=== PATIENT | female | born 1965 | race Caucasian/White ===

== ENCOUNTER 2018-04-24 09:59 | Outpatient (CLI) | payer BC ==
--- NOTE | 2018-04-24 11:01 | RAD ---
PA AND LATERAL CHEST: History: COPD. Comparison: 01-20-17 FINDINGS: Heart size and mediastinum are within normal limits. Chronic appearing lung changes are seen. No acut e process is demonstrated. IMPRESSION: Mild chronic lung change. Stable exam. POS: [facility]
== END 2018-04-24 10:00 | disposition home or self-care (01) ==
LOC: BICRAD 09:59
PROVIDERS: ATTEND Specialist
DX: J44.1 Chronic obstructive pulmonary disease with (acute) exacerbation (principal)
CPT/HCPCS: 71046

== ENCOUNTER 2018-04-27 10:52 | Observation (INO) | payer BC ==
--- NOTE | 2018-04-27 12:04 | RAD ---
PA AND LATERAL CHEST: History: Pneumonia. FINDINGS: Comparison is made with exam of 05-04-18. The heart is enlarged. No focal areas of consolidation, pneumothoraces, melva pulmonary edema or pleu ral effusions are seen. Chronic changes are again noted. IMPRESSION: No acute process. POS: C
[2018-04-27 12:45] VITALS: BMI 29.6
[2018-04-27 13:12] LABS: #Basophils 0.1 thou/uL (0.0-0.2); #Eosinphils 0.2 thou/uL (0.0-0.7); #Lymphocytes 2.7 thou/uL (1.20-3.40); #Monocytes 0.7 thou/uL (0.11-0.59); #Neutrophils 7.1 thou/uL (1.40-6.50); %Basophils 0.7 % (0.0-1.0); %Eosinophils 2.2 % (0.0-10.0); %Lymphocytes 24.7 % (21.0-51.0); %Monocytes 6.4 % (0.0-10.0); %Neutrophils 65.9 % (42.0-75.0); Hemoglobin 13.1 g/dL (12.0-16.0); Mean Corpuscular HGB CONC 32.3 g/dL (32.0-36.0); Mean Corpuscular Hemoglobin 32.6 pg (27.0-31.0); Mean Platelet Volume 6.8 fL (7.4-10.4); Platelet Count 333 thou/uL (130-400); RBC Distribution Width 13.3 % (11.5-14.5); Red Blood Cell (RBC) Count 4.03 mill/uL (4.20-5.40); White Blood Cell (WBC) Count 10.7 thou/uL (4.8-10.8)
[2018-04-27 13:45] LABS: ALT (SGPT) 14 U/L (8-55); AST (SGOT) 24 U/L (5-34); Albumin 3.4 g/dL (3.5-5.0); Alkaline Phosphatase 104 U/L (40-150); Anion Gap 15 mmol/L (10-20); BUN (Urea Nitrogen) 9 mg/dL (9.8-20.1); Bilirubin, Total 0.3 mg/dL (0.2-1.2); Calc. Creatinine Clearance 111 mL/min (70-130); Calcium 9.4 mg/dL (7.8-10.44); Carbon Dioxide 26 mmol/L (22-29); Chloride 98 mmol/L (98-107); Estimated GFR-MDRD 75; Globulin 3.3 g/dL (2.4-3.5); Glucose 127 mg/dL (70-105); Potassium 3.2 mmol/L (3.5-5.1); Protein, Total 6.7 g/dL (6.0-8.3); Sodium 136 mmol/L (136-145)
[2018-04-27] MEDS ORDERED: Sodium Chloride 0.9% 1,000 ML IV SCH (15:45)
[2018-04-27] MEDS ORDERED: Acetaminophen 325 MG TAB PO PRN (16:00)
[2018-04-27 16:48] LABS: Bilirubin Small (Negative); Blood, Urine Negative (Negative); Clarity CLEAR (Clear); Glucose, Urine (Dipstick) Negative (Negative); Leukocyte Negative (Negative); Nitrite Negative (Negative); Protein, Urine (Dipstick) Trace mg/dL (Neg-Trace); Specific Gravity, Urine 1.023 (1.002-1.036)
[2018-04-27] MEDS: Budesonide 0.5 MG/2 ML NEB NEB SCH (16:50)
[2018-04-27 17:01] LABS: Amphetamine Not Detected (NotDetected); Barbiturates Screen Not Detected (NotDetected); Benzodiazepine Screen Detected (NotDetected); Cocaine Metabolite Screen Not Detected (NotDetected); Medtox Control Line Valid? VALID (VALID); Medtox Reader # READER 4; Methadone Not Detected (NotDetected); Methamphetamine Not Detected (NotDetected); Opiate Screen Detected (NotDetected); Oxycodone Screen Detected (NotDetected); Phencyclidine (PCP) Not Detected (NotDetected); THC/Cannabinoid Screen Not Detected (NotDetected); Tricyclic Screen Detected (NotDetected)
[2018-04-27] MEDS: cefTRIAXone\\ROCEPHIN 1 GM in Sodium Chloride 0.9% 100 ML IVPB SCH (18:23)
[2018-04-27] MEDS ORDERED: GABAPENTIN PO SCH (21:00)
[2018-04-27] MEDS ORDERED: Gabapentin 300 MG CAP PO SCH (21:00)
[2018-04-27] MEDS ORDERED: [UNRECOGNIZED DRUG - OTHER] PO SCH (21:00)
[2018-04-27] MEDS: Clarithromycin 500 MG TAB PO SCH (21:19)
[2018-04-27] MEDS: HYDROcodone/Chlorphen Polis 5 ML UDCUP PO SCH (21:20)
[2018-04-27] MEDS: guaiFENesin ER 600 MG TAB PO SCH (21:20)
[2018-04-27] MEDS: DULoxetine 60 MG CAP PO SCH (21:20)
[2018-04-27] MEDS: ALPRAZolam 1 MG TAB PO SCH (21:20)
[2018-04-27] MEDS: rOPINIRole HCl 1 MG TAB PO SCH (21:20)
[2018-04-27] MEDS: methylPREDNISolone Sod Succ/PF 125 MG/2 ML VIAL IVP SCH (23:53)
[2018-04-28] MEDS: HYDROcodone/Acetaminophen 10/325 mg Tablet PO PRN ×2 (05:20→18:00)
[2018-04-28] MEDS: methylPREDNISolone Sod Succ/PF 125 MG/2 ML VIAL IVP SCH ×4 (05:22→23:26)
[2018-04-28 05:35] LABS: #Lymphocytes 0.7 thou/uL (1.20-3.40); #Monocytes 0.1 thou/uL (0.11-0.59); %Basophils 0.3 % (0.0-1.0); %Eosinophils 0.2 % (0.0-10.0); %Monocytes 0.8 % (0.0-10.0); %Neutrophils 92.7 % (42.0-75.0); Hemoglobin 13.2 g/dL (12.0-16.0); Mean Corpuscular HGB CONC 32.6 g/dL (32.0-36.0); Mean Corpuscular Hemoglobin 32.8 pg (27.0-31.0); Mean Platelet Volume 6.8 fL (7.4-10.4); Platelet Count 322 thou/uL (130-400); RBC Distribution Width 13.4 % (11.5-14.5); Red Blood Cell (RBC) Count 4.01 mill/uL (4.20-5.40); White Blood Cell (WBC) Count 10.8 thou/uL (4.8-10.8)
[2018-04-28] MEDS: Budesonide 0.5 MG/2 ML NEB NEB SCH ×2 (05:44→19:47)
[2018-04-28 05:55] LABS: Anion Gap 12 mmol/L (10-20); BUN (Urea Nitrogen) 8 mg/dL (9.8-20.1); Calc. Creatinine Clearance 127 mL/min (70-130); Calcium 9.2 mg/dL (7.8-10.44); Carbon Dioxide 29 mmol/L (22-29); Chloride 102 mmol/L (98-107); Estimated GFR-MDRD 88; Glucose 162 mg/dL (70-105); Potassium 3.1 mmol/L (3.5-5.1); Sodium 140 mmol/L (136-145)
[2018-04-28] MEDS ORDERED: Potassium Chloride 20 MEQ TAB PO SCH (08:30)
--- NOTE | 2018-04-28 09:14 | HP ---
CHIEF COMPLAINT: Protracted upper respiratory illness and bronchopneumonia. HISTORY OF PRESENT ILLNESS: The patient is a 52-year-old female who first came to see Dr. Underwood about this upper respiratory illness on April 20, 2018. At that time, she had already been short of breath with wheezing for 7 days. She was having a cough productive of green sputum and low-grade fever. At that examination, there were scattered wheezes and occasional rales in the right lower lobe. It was felt that she had COPD and possible early right lower lobe pneumonia. She was placed on Levaquin 500 mg, promethazine cough syrup and told to follow with Dr. Underwood if she did not improve. She returned to his office on 04/24/2018 complaining that the medications were not working well, she is still having problems with persistent cough and shortness of breath. On that examination again, her chest revealed rhonchi with decreased breath sounds throughout. Her antibiotics were switched to Biaxin and she then followed up on the day of admission, 04/27/2018 again stating that she was unable to rest. She was coughing all night. Her fever got up to 100.8 and she felt much worse. At this point, it was obvious she was failing outpatient treatment and it was elected to put her in for further evaluation. Her examination had diffuse rhonchi with dyspnea and her examination revealed shortness of breath, dyspnea, and on her chest exam, distant breath sounds in all quadrants with rhonchi. PAST MEDICAL HISTORY: Significant for multiple medical problems including generalized anxiety disorder, chronic insomnia, restless legs syndrome, chronic back pain, COPD, hypertension and vitamin D deficiency. PAST SURGICAL HISTORY: Includes EGD where she was diagnosed with Hurt's esophagus and esophagitis. PAST PSYCHIATRIC HISTORY: Significant for depression, anxiety and chronic pain. ALLERGIES: ALLERGIES ARE TO ERYTHROMYCIN, MORPHINE, TRIPTANS. MEDICATIONS ON ADMISSION: Include: 1. Alprazolam 1 p.o. nightly. 2. Amlodipine 5 mg daily. 3. Dexilant 60 mg daily. 4. Duloxetine 60 mg daily. 5. Vitamin D 42938 units every week. 6. Hydrochlorothiazide 25 mg q.a.m. 7. [place] mg p.r.n. pain. 8. Lisinopril 10 mg daily. 9. Seroquel 100 mg nightly. 10. Ropinirole 1 mg nightly. REVIEW OF SYSTEMS: GENERAL: Significant for generalized malaise and fever and cough. HEENT: Negative for sores on ears, nose, and throat or drainage. CHEST: Significant for dyspnea and cough. HEART: Denies chest pain or palpitations. GI: Denies nausea, vomiting, or diarrhea. : Denies dysuria or blood in urine or stool. MUSCULOSKELETAL: Has significant chronic back pain. No new muscular aches or pains. SKIN: Without any rashes or lesions. NEUROLOGICAL: No new areas of anesthesia, paresthesia, or headaches. PHYSICAL EXAMINATION: VITAL SIGNS: At the time of admission, blood pressure is 100/80, pulse is 100 beats per minute, temperature 99.6, and weight 187 pounds. She is 67 inches tall. BMI of 29. HEENT: Normocephalic, atraumatic. Pupils are equal, round, and reactive to light. Extraocular muscles are intact. TMs clear. Nares clear. Pharynx without erythema or lesion. NECK: Supple. Trachea midline. No mass. No bruits. CHEST: With diminished breath sounds in all carver with rhonchi and faint rales diffusely. HEART: Regular rate and rhythm without murmur. BREASTS: Deferred. ABDOMEN: Soft, nontender without hepatosplenomegaly. : Deferred. EXTREMITIES: Without clubbing, cyanosis, or edema. SKIN: Without rashes or lesions. NEUROLOGICAL: Cranial nerves are intact. Mental status clear. Gait and cerebral functions intact. Sensory exam is intact. SKIN: No new rashes or lesions. LABORATORY DATA: Lab work thus far shows WBC 10.7, hemoglobin 13.1, hematocrit 40.7 and platelets 333. Sodium 136, potassium 3.2, chloride 98, CO2 26, BUN 9, creatinine 0.8 with a GFR 75, glucose 127. UA; small bilirubin. Urinary drug screen, positive for opiates and oxycodone, positive for tricyclics and positive for benzodiazepine. Sputum shows many wbc's with moderate gram-positive cocci in pairs, moderate yeast. Flu exam shows negative for flu A and flu B. Chest x-ray shows an enlarged heart with no acute infiltrates. ASSESSMENT: 1. Bronchial pneumonia. 2. Cardiomegaly. 3. Chronic obstructive pulmonary disease. 4. Hypokalemia. PLAN: To continue neb treatments and antibiotics. We will add steroids and get an echocardiogram for the heart and serially re-evaluate her. Job ID: [id number]
[2018-04-28] MEDS: guaiFENesin ER 600 MG TAB PO SCH ×2 (09:15→21:21)
[2018-04-28] MEDS: Clarithromycin 500 MG TAB PO SCH ×2 (09:15→21:20)
[2018-04-28] MEDS: DULoxetine 60 MG CAP PO SCH ×2 (09:15→21:21)
[2018-04-28] MEDS: Potassium Chloride 20 MEQ TAB PO SCH ×2 (09:16→21:21)
[2018-04-28] MEDS: Amlodipine 5 MG TAB PO SCH (11:58)
[2018-04-28] MEDS: HYDROcodone/Chlorphen Polis 5 ML UDCUP PO SCH ×2 (11:59→21:30)
[2018-04-28] MEDS: Hydrochlorothiazide 25 MG TAB PO SCH (11:59)
[2018-04-28] MEDS ORDERED: cefTRIAXone\\ROCEPHIN 1 GM in Sodium Chloride 0.9% 100 ML IVPB SCH (16:00)
[2018-04-28] MEDS: cefTRIAXone\\ROCEPHIN 1 GM in Sodium Chloride 0.9% 100 ML IVPB SCH (18:01)
[2018-04-28] MEDS: rOPINIRole HCl 1 MG TAB PO SCH (21:20)
[2018-04-28] MEDS: ALPRAZolam 1 MG TAB PO SCH (21:24)
[2018-04-29] MEDS: methylPREDNISolone Sod Succ/PF 125 MG/2 ML VIAL IVP SCH (05:17)
[2018-04-29] MEDS: Budesonide 0.5 MG/2 ML NEB NEB SCH (06:03)
[2018-04-29 06:13] LABS: Anion Gap 12 mmol/L (10-20); BUN (Urea Nitrogen) 9 mg/dL (9.8-20.1); Calc. Creatinine Clearance 132 mL/min (70-130); Calcium 9.3 mg/dL (7.8-10.44); Carbon Dioxide 27 mmol/L (22-29); Chloride 107 mmol/L (98-107); Estimated GFR-MDRD Greater than 90; Glucose 162 mg/dL (70-105); Potassium 3.4 mmol/L (3.5-5.1); Sodium 143 mmol/L (136-145)
[2018-04-29] MEDS ORDERED: Fentanyl 100 MCG/2 ML VIAL SLOW IVP SCH (08:00)
[2018-04-29] MEDS: Clarithromycin 500 MG TAB PO SCH (08:58)
[2018-04-29] MEDS: Amlodipine 5 MG TAB PO SCH (08:58)
[2018-04-29] MEDS: Hydrochlorothiazide 25 MG TAB PO SCH (08:58)
[2018-04-29] MEDS: Potassium Chloride 20 MEQ TAB PO SCH (08:58)
[2018-04-29] MEDS: guaiFENesin ER 600 MG TAB PO SCH (08:58)
[2018-04-29] MEDS: HYDROcodone/Acetaminophen 10/325 mg Tablet PO PRN (08:59)
[2018-04-29] MEDS: DULoxetine 60 MG CAP PO SCH (09:00)
[2018-04-29] MEDS: HYDROcodone/Chlorphen Polis 5 ML UDCUP PO SCH (09:00)
[2018-04-29 10:43] LABS: Band 2 % (5-11); Hemoglobin 12.2 g/dL (12.0-16.0); Hypochromia SLIGHT = 6-15 cells (100X) (0-5/hpf); Large Platelets SLIGHT; Lymphocytes 2 % (21-51); MDiff Complete? YES; Macrocytosis SLIGHT = 6-15 cells (100X) (0-5/hpf); Mean Corpuscular HGB CONC 31.9 g/dL (32.0-36.0); Mean Corpuscular Hemoglobin 32.1 pg (27.0-31.0); Microcytosis SLIGHT = 6-15 cells (100X) (0-5/hpf); Monocytes 4 % (0-10); Neutrophil 88 % (42-75); Platelet Count 352 thou/uL (130-400); Platelet Morphology Comment Appears Adequate; Polychromasia SLIGHT = 2-3 cells (100X) (0-2/hpf); RBC Distribution Width 13.5 % (11.5-14.5); Reactive Lymphocytes 4 % (0-10); White Blood Cell (WBC) Count 24.7 thou/uL (4.8-10.8)
[2018-04-29 11:40] VITALS: BP 111/59; TEMP 98.5
== END 2018-04-29 12:39 | disposition home or self-care (01) ==
LOC: 2SW 10:55
PROVIDERS: ADMIT Specialist; ATTEND Specialist
DX: J18.0 Bronchopneumonia, unspecified organism (principal); I51.7 Cardiomegaly; F41.1 Generalized anxiety disorder; J44.9 Chronic obstructive pulmonary disease, unspecified; E87.6 Hypokalemia; I10 Essential (primary) hypertension; F51.04 Psychophysiologic insomnia; G25.81 Restless legs syndrome; E55.9 Vitamin D deficiency, unspecified; K22.70 Barrett's esophagus without dysplasia; F41.9 Anxiety disorder, unspecified; F32.9 Major depressive disorder, single episode, unspecified; Z88.1 Allergy status to other antibiotic agents; Z88.5 Allergy status to narcotic agent; Z88.8 Allergy status to other drugs, medicaments and biological substances; Z79.52 Long term (current) use of systemic steroids; Z79.899 Other long term (current) drug therapy; Z98.890 Other specified postprocedural states
CPT/HCPCS: 36415; 71046; 80048; 80053; 80306; 81003; 83880; 85025; 87040; 87070; 87205; 87804; 89220; 90471; 90732; 93306; 94640; 96365; 96366; 96367; 96375; 96376; G0009; G0378; J0696; J2930; J3010; J3480; J7050; J7620; J7626

== ENCOUNTER 2018-05-09 12:08 | Outpatient (CLI) | payer BC ==
--- NOTE | 2018-05-12 12:47 | PFT ---
PATIENT HISTORY: HEIGHT: WEIGHT: SMOKER: HOW LONG: PACKS PER DAY PRODUCTIVE COUGH: LUNG DISEASE: PHYSICIAN INTERPRETATION FINAL REPORT: Patient had good effort and cooperation. PFT data: FVC 3.13 (81%), FEV1 2.40 (79%) FEV1/FVC 0.77. RV 1.69 (88%), TLC 4.22 (73%) There is a symmetric reduction the both the FEV1 and the FVC. The ratio is suggestive of a restrictive profile. Total lung capacity is reduced confirming volume restriction. Diffusion capacity was not performed. There is a significant improvement following administration of a bronchodilator. IMPRESSION: Overall, These pulmonary function studies are most consistent with mild restrictive lung disease with no significant reversibility following the administration of a bronchodilator. Diffusion capacity would help to interpret these data. Clinical and radiographic correlation for interstitial process should be considered. No priors for comparison. Rn Sexual Assault: MALINA Furniture Stainer: MALINA RIVAS
== END 2018-05-09 12:09 | disposition home or self-care (01) ==
LOC: CP 12:08
PROVIDERS: ATTEND Specialist
DX: J44.9 Chronic obstructive pulmonary disease, unspecified (principal)
CPT/HCPCS: 94060; 94727

== ENCOUNTER 2018-05-26 13:39 | Outpatient (CLI) | payer BC ==
--- NOTE | 2018-05-26 15:16 | CT ---
NONCONTRAST ENHANCED LOW DOSE CT CHEST: HISTORY: Patient with a history of chronic cough. History of smoking. The patient has had pneumonia for 6 we eks prior to chest x-ray. FINDINGS: Noncontrast-enhanced CT of the chest is performed. Calcification is seen in the mitral annulus, LAD, and minimally along the aortic root. The adrenal gland is unremarkable. The pancreas is unremarkable. The gallbladder is unremarkable. The spleen and liver are unremarkable. There is a 4 mm fairly well circumscribed nodule right upper lobe axial image #[id number]. No other masses o r lesions seen. I do recommended a repeat low-dose CT chest in 6 months to evaluate for interval melissa nge. IMPRESSION: 1. A 4.4 mm right upper lobe newly diagnosed lung parenchymal lesion. Correlate with followup CT ch est in 6 months. 2. Lung RADS category 3, probably benign finding. Short interval followup in 6 months recommended. POS: SAMEER
== END 2018-05-26 13:40 | disposition home or self-care (01) ==
LOC: BICCT 13:39
PROVIDERS: ATTEND Specialist
DX: R05 Cough (principal); R91.1 Solitary pulmonary nodule
CPT/HCPCS: 71250

== ENCOUNTER 2023-07-24 08:44 | Inpatient (IN) | payer BC ==
[2023-07-24] MEDS ORDERED: Famotidine/PF 20 mg/2ml Vial ONE (08:50)
[2023-07-24] MEDS ORDERED: diphenhydrAMINE 50 MG/ML VIAL ONE (08:50)
[2023-07-24] MEDS ORDERED: methylPREDNISolone Sod Succ/PF 125 MG/2 ML VIAL ONE (08:50)
[2023-07-24] MEDS ORDERED: NOREPINEPHRINE 8 MG/250 ML-D5W 250 ML ONE (08:51)
[2023-07-24] MEDS ORDERED: Atropine Sulfate 1 mg/1 ml Vial ONE (09:02)
[2023-07-24] MEDS ORDERED: PHENYLEPHRINE-NS 100 MCG/ML 10 ML SYRINGE ONE (09:02)
[2023-07-24 09:07] LABS: #Basophils 0.05 10x3/uL (0.0-0.2); %Basophils 0.5 % (0.0-1.0); %Eosinophils 2.9 % (0.0-10.0); %Lymphocytes 24.3 % (21.0-51.0); %Monocytes 8.2 % (0.0-10.0); %Neutrophils 63.9 % (42.0-75.0); Hematocrit 37.5 % (36.0-47.0); Hemoglobin 11.8 g/dL (12.0-16.0); Mean Corpuscular HGB CONC 31.5 g/dL (32.0-36.0); Mean Corpuscular Hemoglobin 30.7 pg (27.0-31.0); Mean Corpuscular Volume 97.7 fL (78.0-98.0); Mean Platelet Volume 9.2 fL (7.4-10.4); Platelet Count 286 10x3/uL (130-400); Red Blood Cell (RBC) Count 3.84 mill/uL (4.20-5.40)
[2023-07-24] MEDS ORDERED: TICAGRELOR 90 MG TABLET ONE (09:21)
[2023-07-24] MEDS ORDERED: Heparin 10,000 UNITS/ 10 ML VIAL ONE (09:22)
[2023-07-24] MEDS ORDERED: Morphine 4 MG/ML VIAL ONE (09:25)
[2023-07-24 09:31] LABS: Globulin 3.3 g/dL (2.4-3.5)
[2023-07-24] MEDS ORDERED: Clopidogrel Bisulfate 300 MG TAB ONE (09:33)
[2023-07-24 09:35] LABS: ALT (SGPT) 10 U/L (8-55); AST (SGOT) 16 U/L (5-34); Albumin 2.8 g/dL (3.5-5.0); Alkaline Phosphatase 101 U/L (40-110); Anion Gap 16 mmol/L (10-20); BUN (Urea Nitrogen) 15 mg/dL (9.8-20.1); Bilirubin, Total 0.2 mg/dL (0.2-1.2); Calc. Creatinine Clearance 0 mL/min (70-130); Calcium 8.6 mg/dL (7.8-10.44); Carbon Dioxide 21 mmol/L (22-29); Chloride 106 mmol/L (98-107); Estimated GFR 102; Glucose 109 mg/dL (70-105); Magnesium 2.1 mg/dL (1.6-2.6); Potassium 3.5 mmol/L (3.5-5.1); Protein, Total 6.1 g/dL (6.0-8.3); Sodium 139 mmol/L (136-145)
[2023-07-24 09:38] LABS: Troponin I 0.015 ng/mL (< 0.028)
[2023-07-24] MEDS ORDERED: Ondansetron PF 4 MG/2 ML Vial ONE (10:01)
[2023-07-24] MEDS: Sodium Chloride 0.9% 500 ML IV SCH (11:15)
[2023-07-24] MEDS: Morphine 2 MG/ML VIAL SLOW IVP PRN (11:19)
[2023-07-24] MEDS: methylPREDNISolone Sod Succ/PF 125 MG/2 ML VIAL IVP SCH (11:20)
[2023-07-24] MEDS: Calcium Carbonate 500 MG ChewTAB PO PRN (11:58)
[2023-07-24 12:13] LABS: Troponin I 83.936 ng/mL (< 0.028)
[2023-07-24] MEDS ORDERED: NOREPINEPHRINE 8 MG/250 ML-D5W 250 ML IVPB SCH (12:15)
[2023-07-24] MEDS ORDERED: Iopamidol 370 76% 100 ML VIAL ONE (13:16)
[2023-07-24] MEDS: traMADol HCl 50 MG TAB PO PRN (19:42)
[2023-07-24] MEDS: predniSONE 50 MG TAB PO SCH (19:43)
[2023-07-24] MEDS: Rosuvastatin 20 MG TAB PO SCH (19:43)
[2023-07-24] MEDS ORDERED: tiZANidine HCl 4 MG TAB PO PRN (20:32)
[2023-07-24] MEDS: rOPINIRole HCl 0.5 MG TAB PO SCH (21:06)
[2023-07-24] MEDS: Mirtazapine 15 MG TAB PO SCH (21:06)
[2023-07-24] MEDS: Pantoprazole DR 40 MG TAB PO SCH (21:07)
[2023-07-24] MEDS: Escitalopram Oxalate 10 mg Tablet PO SCH (21:07)
[2023-07-24] MEDS: Gabapentin 300 MG CAP PO SCH (21:07)
[2023-07-24] MEDS: tiZANidine HCl 4 MG TAB PO PRN (21:13)
[2023-07-24] MEDS: Acetaminophen 325 MG TAB PO PRN (22:00)
[2023-07-25 00:09] LABS: Critical Call Chem Troponin I ICU.RH3@0008
[2023-07-25 04:31] LABS: #Basophils Less than 0.03 10x3/uL (0.0-0.2); #Eosinphils Less than 0.03 10x3/uL (0.0-0.7); %Basophils 0.1 % (0.0-1.0); %Lymphocytes 7.9 % (21.0-51.0); %Monocytes 2.4 % (0.0-10.0); %Neutrophils 89.1 % (42.0-75.0); Hematocrit 39.1 % (36.0-47.0); Hemoglobin 12.4 g/dL (12.0-16.0); Mean Corpuscular HGB CONC 31.7 g/dL (32.0-36.0); Mean Corpuscular Hemoglobin 30.9 pg (27.0-31.0); Mean Corpuscular Volume 97.5 fL (78.0-98.0); Mean Platelet Volume 9.6 fL (7.4-10.4); Platelet Count 298 10x3/uL (130-400); RBC Distribution Width 14.8 % (11.5-14.5); Red Blood Cell (RBC) Count 4.01 mill/uL (4.20-5.40)
[2023-07-25 04:57] LABS: Globulin 3.5 g/dL (2.4-3.5)
[2023-07-25 05:01] LABS: ALT (SGPT) 51 U/L (8-55); AST (SGOT) 194 U/L (5-34); Alkaline Phosphatase 106 U/L (40-110); BUN (Urea Nitrogen) 12 mg/dL (9.8-20.1); Bilirubin, Total 0.2 mg/dL (0.2-1.2); Calc. Creatinine Clearance 102 mL/min (70-130); Calcium 9.4 mg/dL (7.8-10.44); Carbon Dioxide 20 mmol/L (22-29); Estimated GFR 101; Glucose 145 mg/dL (70-105); Protein, Total 6.5 g/dL (6.0-8.3)
[2023-07-25 05:43] LABS: Anion Gap 15 mmol/L (10-20); Chloride 110 mmol/L (98-107); Potassium 4.3 mmol/L (3.5-5.1); Sodium 140 mmol/L (136-145)
[2023-07-25] MEDS: Budesonide 0.5 MG/2 ML NEB INH SCH (06:47)
[2023-07-25] MEDS: Arformoterol 15 MCG/2 ML NEB NEB SCH (06:48)
[2023-07-25] MEDS: Aspirin Chewable 81 MG TAB PO SCH (08:48)
[2023-07-25] MEDS: Clopidogrel Bisulfate 75 MG TAB PO SCH (08:49)
[2023-07-25] MEDS: predniSONE 50 MG TAB PO SCH (08:49)
[2023-07-25] MEDS: Metoclopramide HCl 10 MG TAB PO SCH (09:22)
[2023-07-25] MEDS: tiZANidine HCl 4 MG TAB PO PRN (09:23)
[2023-07-25] MEDS: Midodrine HCl 5 MG TAB PO SCH (09:24)
[2023-07-25] MEDS ORDERED: methylPREDNISolone Sod Succ/PF 125 MG/2 ML VIAL IVP SCH (11:00)
[2023-07-25 18:38] LABS: Critical Call Chem Troponin I NUR.CLW1 @1837; Troponin I 51.786 ng/mL (< 0.028)
[2023-07-26 07:26] VITALS: BMI 24.5
[2023-07-26 08:36] LABS: ALT (SGPT) 33 U/L (8-55); AST (SGOT) 63 U/L (5-34); Albumin 2.9 g/dL (3.5-5.0); Alkaline Phosphatase 91 U/L (40-110); Anion Gap 15 mmol/L (10-20); BUN (Urea Nitrogen) 15 mg/dL (9.8-20.1); Bilirubin, Total 0.2 mg/dL (0.2-1.2); Calc. Creatinine Clearance 103 mL/min (70-130); Calcium 9.1 mg/dL (7.8-10.44); Carbon Dioxide 23 mmol/L (22-29); Cardiac Risk 3.9 (Less than 4.5); Chloride 108 mmol/L (98-107); Cholesterol 155 mg/dl (< 200 Desired); Estimated GFR 101; Glucose 62 mg/dL (70-105); HDL Cholesterol 40 mg/dL (>60 Neg Risk); LDL Cholesterol, Calculated 94 mg/dL; Potassium 3.7 mmol/L (3.5-5.1); Protein, Total 5.9 g/dL (6.0-8.3); Sodium 142 mmol/L (136-145); Triglycerides 104 mg/dL (Less than 150)
[2023-07-26 08:41] LABS: #Basophils 0.03 10x3/uL (0.0-0.2); %Basophils 0.2 % (0.0-1.0); %Eosinophils 0.2 % (0.0-10.0); %Lymphocytes 24.4 % (21.0-51.0); %Monocytes 6.7 % (0.0-10.0); %Neutrophils 68.1 % (42.0-75.0); Hematocrit 34.4 % (36.0-47.0); Hemoglobin 10.9 g/dL (12.0-16.0); Mean Corpuscular HGB CONC 31.7 g/dL (32.0-36.0); Mean Corpuscular Volume 94.8 fL (78.0-98.0); Platelet Count 259 10x3/uL (130-400); RBC Distribution Width 15.2 % (11.5-14.5); Red Blood Cell (RBC) Count 3.63 mill/uL (4.20-5.40)
[2023-07-26 09:52] LABS: Critical Call Chem Troponin I NUR.AB28@0951; Troponin I 52.797 ng/mL (< 0.028)
[2023-07-27 05:17] LABS: #Basophils 0.04 10x3/uL (0.0-0.2); %Basophils 0.4 % (0.0-1.0); %Eosinophils 1.8 % (0.0-10.0); %Lymphocytes 32.6 % (21.0-51.0); %Monocytes 8.7 % (0.0-10.0); %Neutrophils 56.3 % (42.0-75.0); Hematocrit 34.4 % (36.0-47.0); Hemoglobin 10.9 g/dL (12.0-16.0); Mean Corpuscular HGB CONC 31.7 g/dL (32.0-36.0); Mean Corpuscular Hemoglobin 29.9 pg (27.0-31.0); Mean Corpuscular Volume 94.2 fL (78.0-98.0); Mean Platelet Volume 9.7 fL (7.4-10.4); Platelet Count 256 10x3/uL (130-400); RBC Distribution Width 15.1 % (11.5-14.5); Red Blood Cell (RBC) Count 3.65 mill/uL (4.20-5.40)
[2023-07-27 05:24] LABS: Globulin 2.9 g/dL (2.4-3.5)
[2023-07-27 05:29] LABS: ALT (SGPT) 25 U/L (8-55); AST (SGOT) 35 U/L (5-34); Albumin 2.8 g/dL (3.5-5.0); Alkaline Phosphatase 90 U/L (40-110); Anion Gap 10 mmol/L (10-20); BUN (Urea Nitrogen) 10 mg/dL (9.8-20.1); Bilirubin, Total 0.2 mg/dL (0.2-1.2); Calc. Creatinine Clearance 96 mL/min (70-130); Calcium 8.8 mg/dL (7.8-10.44); Carbon Dioxide 28 mmol/L (22-29); Chloride 107 mmol/L (98-107); Estimated GFR 97; Glucose 87 mg/dL (70-105); Potassium 3.7 mmol/L (3.5-5.1); Protein, Total 5.7 g/dL (6.0-8.3); Sodium 141 mmol/L (136-145)
[2023-07-27] MEDS: Empagliflozin 10 MG TAB PO SCH (08:29)
[2023-07-27 15:34] VITALS: BP 96/50; TEMP 98.5
== END 2023-07-27 19:15 | disposition home or self-care (01) | DRG 322 ==
LOC: ERS 08:44 → CCL 09:33 → CCU 10:05 → 2NO 07-26 09:25
PROVIDERS: ADMIT Internal Medicine Cardiovascular Disease; ATTEND Internal Medicine Cardiovascular Disease
PROC: 027034Z Dilation of Coronary Artery, One Artery with Drug-eluting Intraluminal Device, Percutaneous Approach (ICD-10-PCS; principal; 2023-07-24)
PROC: 4A023N7 Measurement of Cardiac Sampling and Pressure, Left Heart, Percutaneous Approach (ICD-10-PCS; 2023-07-24)
PROC: B2111ZZ Fluoroscopy of Multiple Coronary Arteries using Low Osmolar Contrast (ICD-10-PCS; 2023-07-24)
PROC: B2151ZZ Fluoroscopy of Left Heart using Low Osmolar Contrast (ICD-10-PCS; 2023-07-24)
PROC: 3E033XZ Introduction of Vasopressor into Peripheral Vein, Percutaneous Approach (ICD-10-PCS; 2023-07-24)
DX: I21.09 ST elevation (STEMI) myocardial infarction involving other coronary artery of anterior wall (principal); J44.1 Chronic obstructive pulmonary disease with (acute) exacerbation; I10 Essential (primary) hypertension; G62.9 Polyneuropathy, unspecified; G47.00 Insomnia, unspecified; E78.5 Hyperlipidemia, unspecified; F17.210 Nicotine dependence, cigarettes, uncomplicated; E11.43 Type 2 diabetes mellitus with diabetic autonomic (poly)neuropathy; K31.84 Gastroparesis; K22.70 Barrett's esophagus without dysplasia; I95.9 Hypotension, unspecified; J44.9 Chronic obstructive pulmonary disease, unspecified; E11.40 Type 2 diabetes mellitus with diabetic neuropathy, unspecified; F41.1 Generalized anxiety disorder; Z90.710 Acquired absence of both cervix and uterus; Z90.49 Acquired absence of other specified parts of digestive tract; Z88.8 Allergy status to other drugs, medicaments and biological substances; Z91.041 Radiographic dye allergy status; Z79.899 Other long term (current) drug therapy
CPT/HCPCS: 36415; 36416; 71045; 80053; 80061; 83735; 84484; 85025; 85347; 92941; 93005; 93010; 93306; 93458; 93798; 94640; 96374; 96375; C1769; C1874; C1887; C9606; J0461; J1200; J1644; J2270; J2272; J2405; J2930; J7030; J7512; J7626; Q9967; S0028

== ENCOUNTER 2024-01-06 20:33 | Inpatient (IN) | payer BC ==
[2024-01-06] MEDS ORDERED: Nitroglycerin 2% Ointment 1 INCH/1 GM Packet ONE (21:25)
[2024-01-06] MEDS ORDERED: Aspirin Chewable 81 MG TAB ONE (21:25)
[2024-01-06 21:31] LABS: #Basophils 0.07 10x3/uL (0.0-0.2); %Basophils 0.9 % (0.0-1.0); %Eosinophils 4.2 % (0.0-10.0); %Lymphocytes 44.7 % (21.0-51.0); %Monocytes 7.8 % (0.0-10.0); %Neutrophils 42.3 % (42.0-75.0); Hematocrit 46.2 % (36.0-47.0); Hemoglobin 14.3 g/dL (12.0-16.0); Mean Corpuscular Hemoglobin 29.7 pg (27.0-31.0); Mean Corpuscular Volume 95.9 fL (78.0-98.0); Mean Platelet Volume 9.9 fL (7.4-10.4); Platelet Count 238 10x3/uL (130-400); RBC Distribution Width 14.2 % (11.5-14.5); Red Blood Cell (RBC) Count 4.82 mill/uL (4.20-5.40)
[2024-01-06] MEDS ORDERED: Morphine 2 MG/ML VIAL ONE (21:41)
[2024-01-06 21:44] LABS: ALT (SGPT) 17 U/L (8-55); AST (SGOT) 33 U/L (5-34); Albumin 3.3 g/dL (3.5-5.0); Alkaline Phosphatase 116 U/L (40-110); Anion Gap 13 mmol/L (10-20); BUN (Urea Nitrogen) 7 mg/dL (9.8-20.1); Bilirubin, Total 0.2 mg/dL (0.2-1.2); Calc. Creatinine Clearance 0 mL/min (70-130); Calcium 9.2 mg/dL (7.8-10.44); Carbon Dioxide 27 mmol/L (22-29); Chloride 102 mmol/L (98-107); Estimated GFR 73; Globulin 3.6 g/dL (2.4-3.5); Glucose 99 mg/dL (70-105); Lipase 7 U/L (8-78); Potassium 4.1 mmol/L (3.5-5.1); Protein, Total 6.9 g/dL (6.0-8.3); Sodium 138 mmol/L (136-145)
[2024-01-06 22:09] LABS: Bacteria/HPF Rare-Few HPF (None Seen); Bilirubin Negative (Negative); Blood, Urine Negative (Negative); CAUTI Indications for Culture Dysuria,urgency,freq; Clarity Clear (Clear); Glucose, Urine (Dipstick) Normal (Negative); Ketone, Urine Negative (Negative); Leukocyte 75 Leu/uL (Negative); Nitrite Negative (Negative); Protein, Urine (Dipstick) Negative (Neg-Trace); Specific Gravity, Urine 1.001 (1.002-1.036); Urobilinogen Normal mg/dL (Less than 2); pH, Urine 5.5 (5.0-9.0)
[2024-01-06 22:10] LABS: Urine Culture Reflex No No
[2024-01-06 23:39] VITALS: BMI 25.0
[2024-01-07] MEDS: tiZANidine HCl 4 MG TAB PO PRN (00:37)
[2024-01-07] MEDS: Acetaminophen 325 MG TAB PO PRN (00:38)
[2024-01-07 01:35] LABS: Troponin I Less than 0.010 ng/mL (< 0.028)
[2024-01-07] MEDS: Ketorolac Tromethamine 30 MG (1 mL) VIAL IVP SCH ×2 (02:58→10:08)
[2024-01-07 03:40] LABS: #Basophils 0.06 10x3/uL (0.0-0.2); %Basophils 0.7 % (0.0-1.0); %Eosinophils 3.8 % (0.0-10.0); %Lymphocytes 41.1 % (21.0-51.0); %Monocytes 6.8 % (0.0-10.0); %Neutrophils 47.4 % (42.0-75.0); Hematocrit 40.6 % (36.0-47.0); Hemoglobin 12.7 g/dL (12.0-16.0); Mean Corpuscular HGB CONC 31.3 g/dL (32.0-36.0); Mean Corpuscular Hemoglobin 29.7 pg (27.0-31.0); Mean Corpuscular Volume 95.1 fL (78.0-98.0); Mean Platelet Volume 10.3 fL (7.4-10.4); Platelet Count 199 10x3/uL (130-400); RBC Distribution Width 14.4 % (11.5-14.5); Red Blood Cell (RBC) Count 4.27 mill/uL (4.20-5.40)
[2024-01-07 04:10] LABS: Anion Gap 13 mmol/L (10-20); BUN (Urea Nitrogen) 8 mg/dL (9.8-20.1); Calc. Creatinine Clearance 74 mL/min (70-130); Calcium 8.8 mg/dL (7.8-10.44); Carbon Dioxide 25 mmol/L (22-29); Chloride 105 mmol/L (98-107); Estimated GFR 69; Glucose 124 mg/dL (70-105); Potassium 4.1 mmol/L (3.5-5.1); Sodium 139 mmol/L (136-145)
[2024-01-07 04:14] LABS: Troponin I 0.025 ng/mL (< 0.028)
[2024-01-07] MEDS: Aspirin Chewable 81 MG TAB PO SCH (08:31)
[2024-01-07] MEDS: Pantoprazole DR 40 MG TAB PO SCH (08:31)
[2024-01-07] MEDS: Clopidogrel Bisulfate 75 MG TAB PO SCH (08:31)
[2024-01-07] MEDS: Fludrocortisone Acetate 0.1 MG TAB PO SCH ×2 (08:31→20:10)
[2024-01-07] MEDS: Empagliflozin 10 MG TAB PO SCH (08:33)
[2024-01-07] MEDS: Gabapentin 300 MG CAP PO SCH (08:33)
[2024-01-07] MEDS: Potassium Chloride 20 MEQ TAB PO SCH (08:33)
[2024-01-07] MEDS: Heparin 5,000 UNITS/ML VIAL SC SCH (08:37)
[2024-01-07] MEDS: Escitalopram Oxalate 10 mg Tablet PO SCH ×2 (11:24→20:10)
[2024-01-07] MEDS: Midodrine HCl 5 MG TAB PO PRN (11:32)
[2024-01-07] MEDS ORDERED: Glucagon 1 MG/ML KIT IM PRN (11:47)
[2024-01-07] MEDS ORDERED: Insulin Lispro 100 UNIT/ML 10 ML VIAL SC PRN (11:47)
[2024-01-07] MEDS ORDERED: Dextrose 5% in Water 1,000 ML IV PRN (11:47)
[2024-01-07] MEDS ORDERED: Dextrose 50% Abboject 50 ML SYRINGE SLOW IVP PRN (11:47)
[2024-01-07] MEDS: Sodium Chloride 0.9% 1,000 ML IV SCH ×3 (12:17→15:34)
[2024-01-07] MEDS: HYDROcodone/Acetaminophen 5/325 mg Tablet PO PRN (15:31)
[2024-01-07] MEDS: Midodrine HCl 5 MG TAB PO SCH (17:23)
[2024-01-07] MEDS: Ondansetron PF 4 MG/2 ML Vial IVP PRN (19:20)
[2024-01-07] MEDS: Mirtazapine 15 MG TAB PO SCH (20:09)
[2024-01-07] MEDS: rOPINIRole HCl 1 MG TAB PO SCH (20:10)
[2024-01-07] MEDS: Rosuvastatin 20 MG TAB PO SCH (20:10)
[2024-01-07] MEDS: Promethazine HCl 25 MG in Sodium Chloride 0.9% 50 ML IVPB SCH (22:37)
[2024-01-08] MEDS: Melatonin 3 MG TAB PO SCH (00:46)
[2024-01-08 06:18] LABS: Cardiac Risk 4.8 (Less than 4.5)
[2024-01-08] MEDS ORDERED: Midodrine HCl 5 MG TAB PO PRN (08:31)
[2024-01-09] MEDS: FLU (Fluarix Triv) TS24-25(6MOS UP)/PF 45 MCG/0.5 ML Syringe IM ONE (14:33)
[2024-01-09] MEDS: Diazepam 2 MG TAB PO SCH (16:48)
[2024-01-10 05:19] LABS: Cardiac Risk 3.4 (Less than 4.5)
[2024-01-10] MEDS ORDERED: fentaNYL 50 mcg/mL 1 mL Vial ONE (06:32)
[2024-01-10] MEDS ORDERED: CEFAZOLIN 1 GM VIAL ONE (06:33)
[2024-01-10] MEDS ORDERED: Gentamicin 80 MG/2 ML VIAL ONE (06:33)
[2024-01-10] MEDS ORDERED: CEFAZOLIN 2 GM VIAL ONE (06:33)
[2024-01-10] MEDS ORDERED: Midazolam HCl 2 mg/2 ml Vial ONE (06:33)
[2024-01-11 04:33] LABS: #Basophils 0.03 10x3/uL (0.0-0.2); %Basophils 0.6 % (0.0-1.0); %Eosinophils 4.9 % (0.0-10.0); %Lymphocytes 37.3 % (21.0-51.0); %Monocytes 6.4 % (0.0-10.0); %Neutrophils 50.6 % (42.0-75.0); Hematocrit 39.7 % (36.0-47.0); Hemoglobin 12.3 g/dL (12.0-16.0); Mean Corpuscular Hemoglobin 29.7 pg (27.0-31.0); Mean Corpuscular Volume 95.9 fL (78.0-98.0); Mean Platelet Volume 9.9 fL (7.4-10.4); Platelet Count 142 10x3/uL (130-400); RBC Distribution Width 14.5 % (11.5-14.5); Red Blood Cell (RBC) Count 4.14 mill/uL (4.20-5.40)
[2024-01-11 05:25] LABS: Anion Gap 11 mmol/L (10-20); BUN (Urea Nitrogen) 8 mg/dL (9.8-20.1); Calc. Creatinine Clearance 83 mL/min (70-130); Calcium 8.8 mg/dL (7.8-10.44); Carbon Dioxide 27 mmol/L (22-29); Chloride 107 mmol/L (98-107); Estimated GFR 81; Glucose 109 mg/dL (70-105); Potassium 3.4 mmol/L (3.5-5.1); Sodium 142 mmol/L (136-145)
[2024-01-11] MEDS: Prochlorperazine 10 MG/2 ML VIAL IVP SCH (12:11)
[2024-01-11] MEDS: Fluticasone Propionate Nasal Spray 16 gm Bottle NASAL SCH (12:11)
[2024-01-11] MEDS: Potassium Chloride 20 MEQ TAB PO SCH (13:16)
[2024-01-11] MEDS: Midodrine HCl 5 MG TAB PO SCH (20:42)
[2024-01-12 05:15] LABS: #Basophils 0.04 10x3/uL (0.0-0.2); %Basophils 0.6 % (0.0-1.0); %Eosinophils 4.5 % (0.0-10.0); %Monocytes 7.4 % (0.0-10.0); %Neutrophils 41.3 % (42.0-75.0); Hematocrit 38.3 % (36.0-47.0); Hemoglobin 12.2 g/dL (12.0-16.0); Mean Corpuscular HGB CONC 31.9 g/dL (32.0-36.0); Mean Corpuscular Hemoglobin 30.2 pg (27.0-31.0); Mean Corpuscular Volume 94.8 fL (78.0-98.0); Mean Platelet Volume 10.4 fL (7.4-10.4); Platelet Count 144 10x3/uL (130-400); RBC Distribution Width 14.8 % (11.5-14.5); Red Blood Cell (RBC) Count 4.04 mill/uL (4.20-5.40)
[2024-01-12 05:30] LABS: Anion Gap 9 mmol/L (10-20); BUN (Urea Nitrogen) 8 mg/dL (9.8-20.1); Calc. Creatinine Clearance 95 mL/min (70-130); Calcium 8.8 mg/dL (7.8-10.44); Carbon Dioxide 25 mmol/L (22-29); Chloride 110 mmol/L (98-107); Estimated GFR 87; Glucose 95 mg/dL (70-105); Potassium 3.9 mmol/L (3.5-5.1); Sodium 140 mmol/L (136-145)
[2024-01-12] MEDS: Fluticasone Propionate Nasal Spray 16 gm Bottle NASAL SCH (10:15)
[2024-01-12 11:23] VITALS: TEMP 98.4
[2024-01-12 11:40] VITALS: BP 173/98
== END 2024-01-12 14:26 | disposition home or self-care (01) | DRG 244 ==
LOC: ERS 20:33 → OBS 22:35 → OBSVTOIN 01-09 08:09
PROVIDERS: ADMIT Internal Medicine; ATTEND Internal Medicine
PROC: 0JH606Z Insertion of Pacemaker, Dual Chamber into Chest Subcutaneous Tissue and Fascia, Open Approach (ICD-10-PCS; principal; 2024-01-10)
PROC: 02H63JZ Insertion of Pacemaker Lead into Right Atrium, Percutaneous Approach (ICD-10-PCS; 2024-01-10)
PROC: 02HK3JZ Insertion of Pacemaker Lead into Right Ventricle, Percutaneous Approach (ICD-10-PCS; 2024-01-10)
DX: I95.1 Orthostatic hypotension (principal); I25.10 Atherosclerotic heart disease of native coronary artery without angina pectoris; E11.40 Type 2 diabetes mellitus with diabetic neuropathy, unspecified; E78.5 Hyperlipidemia, unspecified; F32.A Depression, unspecified; F41.9 Anxiety disorder, unspecified; G25.81 Restless legs syndrome; I10 Essential (primary) hypertension; J44.9 Chronic obstructive pulmonary disease, unspecified; K22.70 Barrett's esophagus without dysplasia; E66.9 Obesity, unspecified; E78.00 Pure hypercholesterolemia, unspecified; I49.5 Sick sinus syndrome; Z91.041 Radiographic dye allergy status; Z88.8 Allergy status to other drugs, medicaments and biological substances; Z90.710 Acquired absence of both cervix and uterus; Z90.49 Acquired absence of other specified parts of digestive tract; Z79.82 Long term (current) use of aspirin; Z79.899 Other long term (current) drug therapy; Z87.891 Personal history of nicotine dependence
CPT/HCPCS: 33208; 36415; 36416; 70450; 70551; 71045; 72072; 80048; 80053; 80061; 81001; 83690; 83735; 84484; 85025; 93005; 93010; 93880; 94760; 96374; 97139; 99152; 99153; C1785; C1898; J0690; J0780; J1580; J1644; J1885; J2250; J2272; J2405; J2550; J3010

== ENCOUNTER 2024-01-21 09:10 | Inpatient (IN) | payer BC ==
[2024-01-21] MEDS ORDERED: Metoclopramide HCl 10 MG (2 mL) VIAL ONE (09:53)
[2024-01-21] MEDS ORDERED: fentaNYL 50 mcg/mL 1 mL Vial ONE (09:53)
[2024-01-21 10:42] LABS: #Basophils 0.04 10x3/uL (0.0-0.2); #Eosinophils Less than 0.03 10x3/uL (0.0-0.7); %Basophils 0.5 % (0.0-1.0); %Lymphocytes 11.2 % (21.0-51.0); %Monocytes 3.6 % (0.0-10.0); %Neutrophils 84.4 % (42.0-75.0); Hematocrit 44.2 % (36.0-47.0); Hemoglobin 14.5 g/dL (12.0-16.0); Mean Corpuscular HGB CONC 32.8 g/dL (32.0-36.0); Mean Corpuscular Hemoglobin 29.8 pg (27.0-31.0); Mean Corpuscular Volume 90.8 fL (78.0-98.0); Mean Platelet Volume 9.6 fL (7.4-10.4); Platelet Count 304 10x3/uL (130-400); RBC Distribution Width 14.5 % (11.5-14.5); Red Blood Cell (RBC) Count 4.87 mill/uL (4.20-5.40)
[2024-01-21 10:45] LABS: ALT (SGPT) 9 U/L (8-55); AST (SGOT) 22 U/L (5-34); Albumin 3.5 g/dL (3.5-5.0); Alkaline Phosphatase 107 U/L (40-110); Anion Gap 17 mmol/L (10-20); BUN (Urea Nitrogen) 8 mg/dL (9.8-20.1); Bilirubin, Total 0.6 mg/dL (0.2-1.2); Calc. Creatinine Clearance 0 mL/min (70-130); Calcium 9.7 mg/dL (7.8-10.44); Carbon Dioxide 20 mmol/L (22-29); Chloride 108 mmol/L (98-107); Estimated GFR 76; Globulin 4.3 g/dL (2.4-3.5); Glucose 123 mg/dL (70-105); Lipase 5 U/L (8-78); Potassium 3.3 mmol/L (3.5-5.1); Protein, Total 7.8 g/dL (6.0-8.3); Sodium 142 mmol/L (136-145)
[2024-01-21] MEDS ORDERED: Ondansetron PF 4 MG/2 ML Vial ONE ×2 (11:01→12:39)
[2024-01-21 11:10] LABS: Troponin I 0.063 ng/mL (< 0.028)
[2024-01-21] MEDS ORDERED: Morphine 4 MG/ML VIAL ONE (13:03)
[2024-01-21] MEDS ORDERED: Guaifenesin DM 100-10/5 ML UDCUP PO PRN (13:51)
[2024-01-21] MEDS ORDERED: Senokot S 8.6-50 MG TAB PO PRN (13:51)
[2024-01-21] MEDS ORDERED: Acetaminophen 325 MG TAB PO PRN (13:51)
[2024-01-21] MEDS ORDERED: tiZANidine HCl 4 MG TAB PO PRN ×2 (14:23→15:57)
[2024-01-21] MEDS ORDERED: Promethazine HCl 12.5 MG in Sodium Chloride 0.9% 50 ML IVPB PRN (14:49)
[2024-01-21] MEDS ORDERED: Promethazine HCl 25 MG/ML VIAL ONE (14:56)
[2024-01-21] MEDS: Morphine 2 MG/ML VIAL SLOW IVP PRN (17:41)
[2024-01-21] MEDS: Sodium Chloride 0.9% 1,000 ML IV SCH (17:41)
[2024-01-21 18:03] VITALS: BMI 23.1
[2024-01-21] MEDS: Ondansetron PF 4 MG/2 ML Vial IVP PRN (20:06)
[2024-01-21] MEDS: Mirtazapine 15 MG TAB PO SCH (20:07)
[2024-01-21] MEDS: Gabapentin 300 MG CAP PO SCH (20:07)
[2024-01-21] MEDS: Famotidine/PF 20 mg/2ml Vial SLOW IVP SCH (20:07)
[2024-01-21] MEDS: rOPINIRole HCl 1 MG TAB PO SCH (20:07)
[2024-01-22] MEDS: traMADol HCl 50 MG TAB PO PRN (00:48)
[2024-01-22 04:11] LABS: #Basophils 0.04 10x3/uL (0.0-0.2); %Basophils 0.5 % (0.0-1.0); %Eosinophils 1.9 % (0.0-10.0); %Monocytes 8.3 % (0.0-10.0); Hematocrit 40.9 % (36.0-47.0); Hemoglobin 12.6 g/dL (12.0-16.0); Mean Corpuscular HGB CONC 30.8 g/dL (32.0-36.0); Mean Corpuscular Hemoglobin 29.6 pg (27.0-31.0); Mean Corpuscular Volume 96.2 fL (78.0-98.0); Mean Platelet Volume 9.6 fL (7.4-10.4); Platelet Count 294 10x3/uL (130-400); RBC Distribution Width 15.3 % (11.5-14.5); Red Blood Cell (RBC) Count 4.25 mill/uL (4.20-5.40)
[2024-01-22 04:41] LABS: Anion Gap 11 mmol/L (10-20); BUN (Urea Nitrogen) 8 mg/dL (9.8-20.1); Calc. Creatinine Clearance 71 mL/min (70-130); Calcium 8.9 mg/dL (7.8-10.44); Carbon Dioxide 22 mmol/L (22-29); Chloride 110 mmol/L (98-107); Estimated GFR 72; Glucose 100 mg/dL (70-105); Potassium 3.3 mmol/L (3.5-5.1); Sodium 140 mmol/L (136-145)
[2024-01-22] MEDS: Rosuvastatin 20 MG TAB PO SCH (08:37)
[2024-01-22] MEDS: Enoxaparin 40 MG (0.4 mL) SYRINGE SC SCH (08:37)
[2024-01-22] MEDS: Fludrocortisone Acetate 0.1 MG TAB PO SCH (08:37)
[2024-01-22] MEDS ORDERED: FLU (Fluarix Triv) TS24-25(6MOS UP)/PF 45 MCG/0.5 ML Syringe IM ONE (09:00)
[2024-01-22] MEDS: Potassium Chloride 20 MEQ TAB PO SCH (10:34)
[2024-01-22 15:25] VITALS: BP 134/62; TEMP 98.1
[2024-01-22] MEDS ORDERED: Escitalopram Oxalate 20 mg Tablet PO SCH (21:00)
[2024-01-22] MEDS ORDERED: Pantoprazole DR 40 MG TAB PO SCH (21:00)
[2024-01-23] MEDS ORDERED: Aspirin Chewable 81 MG TAB PO SCH (09:00)
== END 2024-01-22 15:35 | disposition home or self-care (01) | DRG 315 ==
LOC: ERS 09:10 → 2NO 15:40 → OBSVTOIN 01-22 10:59
PROVIDERS: ADMIT Hospitalist; ATTEND Hospitalist
DX: I97.89 Other postprocedural complications and disorders of the circulatory system, not elsewhere classified (principal); J94.8 Other specified pleural conditions; I25.10 Atherosclerotic heart disease of native coronary artery without angina pectoris; I11.9 Hypertensive heart disease without heart failure; Z90.49 Acquired absence of other specified parts of digestive tract; F17.210 Nicotine dependence, cigarettes, uncomplicated; E78.5 Hyperlipidemia, unspecified; F41.9 Anxiety disorder, unspecified; E87.6 Hypokalemia; F32.A Depression, unspecified; Y83.8 Other surgical procedures as the cause of abnormal reaction of the patient, or of later complication, without mention of misadventure at the time of the procedure; Z95.0 Presence of cardiac pacemaker; Z95.5 Presence of coronary angioplasty implant and graft; Z88.8 Allergy status to other drugs, medicaments and biological substances; Z91.041 Radiographic dye allergy status
CPT/HCPCS: 36415; 71045; 74176; 80048; 80053; 83605; 83690; 83880; 84484; 85025; 93005; 96365; 96372; 96375; 96376; G0378; J1650; J2272; J2405; J2550; J2765; J3010; J3490; J7030

== ENCOUNTER 2024-01-31 12:46 | Outpatient (CLI) | payer BC | END 2024-01-31 12:47 | disposition home or self-care (01) | LOC: RAD 12:46 | PROVIDERS: ATTEND Student in an Organized Health Care Education/Training Program | DX: J93.9 Pneumothorax, unspecified (principal); I77.810 Thoracic aortic ectasia | CPT/HCPCS: 71046 ==